=== PATIENT | female | born 1995 | race Caucasian/White ===

== ENCOUNTER → 2022-01-03 | Outpatient (CLI) | payer MEDICAID ==
[2016-06-01 15:50] VITALS: BP 123/72
--- NOTE | 2022-01-03 17:08 | CARD ---
MR#: [id number] Date of Study: 01/03/2022 Ordering Physician: JAZZMINE THURMAN, Referring Physician: JAZZMINE THURMAN, Tech: Yosef Araya [facility] APPROVED REPORT EXAM: Two-dimensional and M-mode echocardiogram with Doppler and color Doppler. Other Information Quality : AverageHR: 91bpm Rhythm : NSR INDICATION Palpitations 2D DIMENSIONS Left Atrium(2D)2.4 (1.6-4.0cm)IVSd0.5 (0.7-1.1cm) Aortic Root(2D)2.5 (2.0-3.7cm)LVDd4.3 (3.9-5.9cm) PWd0.5 (0.7-1.1cm)LA Zgtiub24 (18-58mL) LVDs3.1 (2.5-4.0cm)FS (%) 28.0 % SV45.2 ml Aortic Valve AoV Peak Lavelle.114.3cm/sAoV VTI21.8cm AO Peak GR.5.2mmHgLVOT Peak Lavelle.87.5cm/s LVOT VTI 15.85cmAO Mean GR.3mmHg Mitral Valve MV E Onmwbdue44.6cm/sMV DECEL [id number] MV A Gnzpktvz34.4cm/sMV TSS11sz E/A Ratio0.9MVA (PHT)2.31cm2 TDI E/Lateral E'4.7E/Medial E'5.5 Pulmonary Valve PV Peak Gqnimjhy27.1cm/sPV Peak Grad.2mmHg Tricuspid Valve TR P. Weskhqrc021jj/sTR Peak Gr.22mmHg Pulmonary Vein S1 Xlfcbtnm75.9cm/sD2 Auidlsuw15.0cm/s LEFT VENTRICLE The left ventricle is normal size. There is normal left ventricular wall thickness. The left ventricu lar systolic function is normal and the ejection fraction is within normal range. LV ejection fractio n is 55 to 60%. There is normal LV segmental wall motion. The left ventricular diastolic function and filling is normal for age. No left ventricle thrombus noted on this study. There is no ventricular s eptal defect visualized. There is no left ventricular aneurysm. There is no mass noted in the left ve ntricle. RIGHT VENTRICLE The right ventricle is normal size. There is normal right ventricular wall thickness. The right ventr icular systolic function is normal. ATRIA The left atrium size is normal. The right atrium size is normal. The interatrial septum is intact wit h no evidence for an atrial septal defect or patent foramen ovale as noted on 2-D or Doppler imaging. AORTIC VALVE The aortic valve is normal in structure and function. Doppler and Color Flow revealed no significant aortic regurgitation. There is no significant aortic valvular stenosis. There is no aortic valvular v egetation. MITRAL VALVE The mitral valve is normal in structure and function. There is no evidence of mitral valve prolapse. There is no mitral valve stenosis. Doppler and Color Flow revealed no mitral valve regurgitation note d. TRICUSPID VALVE The tricuspid valve is normal in structure and function. Doppler and Color Flow revealed trace tricus pid regurgitation. The PA pressure was estimated at 28 mmHg. There is no tricuspid valve prolapse or vegetation. There is no tricuspid valve stenosis. PULMONIC VALVE The pulmonary valve is normal in structure and function. GREAT VESSELS The aortic root is normal in size. The ascending aorta is normal in size. The pulmonary artery is nor mal. The IVC is normal in size and collapses >50% with inspiration. PERICARDIAL EFFUSION There is no pleural effusion. There is no evidence of significant pericardial effusion. Critical Notification Critical Value: No <Conclusion> The left ventricle is normal size. The left ventricular systolic function is normal and the ejection fraction is within normal range. LV ejection fraction is 55 to 60%. There is normal LV segmental wall motion. Doppler and Color Flow revealed no significant aortic regurgitation. There is no significant aortic valvular stenosis. Doppler and Color Flow revealed no mitral valve regurgitation noted. Doppler and Color Flow revealed trace tricuspid regurgitation. The PA pressure was estimated at 28 mmHg. Signed by : Mj Wright MD Electronically Approved : 01/03/2022 17:08:14
== END ==
LOC: ECHO 11:13
PROVIDERS: ATTEND Internal Medicine Cardiovascular Disease
DX: R00.2 Palpitations (principal)
CPT/HCPCS: 93306; C8929